=== PATIENT | female | born 1945 ===

== ENCOUNTER 2023-04-30 22:30 | Inpatient (IN) | payer MEDICARE ==
[~2023-04-30] VITALS: Ht 167.6 cm; Wt 87.2 kg
[2023-04-30 23:45] VITALS: BP 141/62; PULSE 89; TEMP 97.8
--- NOTE | 2023-04-30 23:45 | NUR ---
PATIENT ADMITED INTO ROOM 325 FROM [facility] VIA EMS WITH LEFT HIP FX. A&O. VSS. PATIENT REPORTS SHE WAS DRINKING WHISKEY AT A FAMILY GATHERING AND FELL. ETOH WAS 129 AT [facility]. NOTED LEFT HEAD & ELBOW ABRASIONS FROM FALL. LEFT HIP IS SHORTENED & EXTERNALLY ROTATED. TEDS TO RLE. SCD'S TO BLE. BEDREST. NPO PENDING SURGERY. ARRIVED WITH IV FLUIDS INFUSING INTO RIGHT WRIST IV. COELHO TO DD WITH LARGE AMOUNTS OF YELLOW, CLOUDY URINE. [facility] REPORTED UTI AND 1G ROCEPHIN WAS GIVEN THERE BEFORE TRANSFER. HEAD TO TOE ASSESSMENT COMPLETE. HOSPITALIST NOTIFIED OF ARRIVAL. ORIENTED TO ROOM. CALL LIGHT IN REACH. BED ALARM ON. PATIENT TIRED AND WANTING TO REST. LIGHTS TURNED DOWN.
[2023-04-30] MEDS ORDERED: ARIMIDEX1 MG PO (23:52)
[2023-04-30] MEDS ORDERED: COZAAR 50MG50 MG/TAB PO (23:52)
[2023-04-30] MEDS ORDERED: LUNESTA3 MG PO (23:53)
[2023-04-30] MEDS ORDERED: SYNTHROID0.088 MG/T PO (23:53)
[2023-04-30] MEDS ORDERED: ULTRAM 50MG TAB50 MG PO (23:54)
[2023-04-30] MEDS ORDERED: NEURONTIN300 MG/CAP PO ×2 (23:55→23:56)
[2023-04-30] MEDS ORDERED: PLAQUENIL 200M200 MG PO (23:57)
[2023-04-30] MEDS ORDERED: PRIL40 PO (23:58)
[2023-04-30] MEDS ORDERED: ACTOS 45MG45 MG/TAB PO (23:59)
[2023-05-01] VITALS (15 sets, daily range): BP systolic 81–164; BP diastolic 48–79; PULSE 61–106; TEMP 97.6–98.7
[2023-05-01] MEDS ORDERED: ROCEPHIN VIA1 G/VIAL IJ (00:44)
[2023-05-01] MEDS ORDERED: FLEXERIL 1010 MG/TAB PO (00:45)
[2023-05-01 02:07] LABS: BASO % 0.3 % (0.0-2.0); EOS # 0.1 K/mm3 (0.0-0.7); EOS % 0.8 % (0.0-4.0); GRAN # 6.4 K/mm3 (1.4-6.5); GRAN % 79.6 % (42.2-75.2); LYMPH # 1.1 K/mm3 (1.2-3.4); LYMPH % 13.7 % (20.0-51.0); MEAN CELL VOLUME 92 fl (80.0-100.0); MEAN CORPUSCULAR HEMOGLOBIN 32 pg (27-31); MEAN CORPUSCULAR HGB CONC 35 g/dl (33.0-37.0); MEAN PLATELET VOLUME 9.1 fl (7.4-10.4); MONO # 0.4 K/mm3 (0.1-0.6); MONO % 5.3 % (1.7-9.3); PLATELET COUNT 119 K/mm3 (130-400); REDCELL DISTRIBUTION WIDTH-CV 13.2 % (11.5-14.5)
[2023-05-01 02:09] LABS: HEMATOCRIT 28.5 % (37.0-47.0)
[2023-05-01 02:19] LABS: ALANINE AMINOTRANSFERASE 25 U/L (0-55); ALBUMIN 3.4 gm/dL (3.4-4.8); ALKALINE PHOSPHATASE 87 U/L (40-150); ANION GAP 12 mmol/L (7-16); AST,SGOT 42 U/L (5-34); BILIRUBIN,TOTAL 0.3 mg/dL (0.2-1.2); BLOOD UREA NITROGEN 9 mg/dL (10-20); CALCIUM 8.8 mg/dL (8.4-10.2); CARBON DIOXIDE 23 mmol/L (23-31); CHLORIDE 100 mmol/L (98-107); CREATININE, serum 0.72 mg/dL (0.57-1.11); GLUCOSE 88 mg/dL (70-99); MAGNESIUM 1.7 mg/dL (1.6-2.6); SODIUM 135 mmol/L (136-145); TOTAL PROTEIN 6.7 gm/dL (6.2-8.1)
[2023-05-01 02:28] LABS: TROPONIN-I < 0.010 ng/mL (0.00-0.033)
--- NOTE | 2023-05-01 08:00 | NUR ---
PT RESTING IN BED WITH PAIN 6/10 IN L HIP. ATTEMPTED TO REPOSITION. PT A/O X4, LIMITED MOVEMENT OF LLE. VITALS STABLE, MORNING MEDICATIONS PROVIDED. WILL CONTINUE TO MONITOR.
[2023-05-01] MEDS ORDERED: PROBIOTIC-MAJOR PO (09:06)
[2023-05-01] MEDS ORDERED: ASPIRIN E.C. 8181 MG PO (09:07)
--- NOTE | 2023-05-01 15:25 | NUR ---
Staff Physical Therapist met briefly with patient before she was taken down for surgery. Patient stated she lives alone in [facility] and sees Dr. Edwin Morejon for primary care. Patient obtains medications from [facility] in [place] and reported no difficulties affording them. Patient stated she has two canes at home and no other DME. Patient advised she will likely need to secure a walker for discharge. Patient stated she is independent with ADLS. Patient advised her four sons are her DPOA-HC: Ravi (ph#[phone]), Ag, Shannon, and Sami. Patient advised Sami lives in [facility] but the other three live locally. SW explained her role in discharge planning and will await PT/OT evals after surgery for recommendations. Discharge Plan: May need rehab, PT/OT evals pending
--- NOTE | 2023-05-01 18:50 | NUR ---
REPORT RECEIVED FROM PACU NURSE. PT UP TO FLOOR AT THIS TIME. PT A/O X4, PAIN 1/10, VITALS STABLE ON RA, FAMILY AT BEDSIDE, L HIP DRESSING CLEAN, DRY, AND INTACT. ICE TO L HIP. PULSES +2 AND TRACE EDEMA ON BLE, EXTREMITY WARM. DIET ADVANCED WITH NO N/V. WILL CONTINUE TO MONITOR.
--- NOTE | 2023-05-01 21:25 | NUR ---
RECEIVED REPORT FROM DELFINAMIRENAN BUI RN. PATIENT RETURNED FROM OR SHORTLY PRIOR TO SHIFT CHANGE. PATIENT IN ROOM VISITING WITH FAMILY WHILE EATING DINNER. CALL LIGHT WITHIN REACH.
--- NOTE | 2023-05-01 21:31 | NUR ---
HEAD TO TOE ASSESSMENT COMPLETED. PATIENT REPORT PAIN IS 3/10. PUPILS EQUAL AND REACTIVE. HEART SOUNDS REGULAR WITH S1 AND S2 NOTED. LUNG SOUNDS CLEAR BILATERALLY IN UPPER AND LOWER LOBES. BOWEL SOUNDS AUDIBLE IN ALL QUADRANTS. PULSES PRESENT AND EQUAL BILATERALLY IN UPPER AND LOWER EXTREMITIES. DRESSING TO LEFT HIP IS CDI. MEDICATIONS ADMINISTERED PER EMAR. CALL LIGHT WITHIN REACH.
[2023-05-02] VITALS (8 sets, daily range): BP systolic 104–152; BP diastolic 41–60; PULSE 95–101; TEMP 97.7–98.5
[2023-05-02 05:28] LABS: MEAN CELL VOLUME 91 fl (80.0-100.0); MEAN CORPUSCULAR HGB CONC 35 g/dl (33.0-37.0); MEAN PLATELET VOLUME 9.3 fl (7.4-10.4); PLATELET COUNT 116 K/mm3 (130-400); RED BLOOD COUNT 3.07 M/mm3 (4.10-5.30); REDCELL DISTRIBUTION WIDTH-CV 13.3 % (11.5-14.5)
[2023-05-02 05:30] LABS: HEMATOCRIT 27.9 % (37.0-47.0); HEMOGLOBIN 9.7 g/dl (12.5-16.0); MEAN CORPUSCULAR HEMOGLOBIN 32 pg (27-31)
[2023-05-02 05:39] LABS: ALBUMIN 2.9 gm/dL (3.4-4.8); CALCIUM 8.7 mg/dL (8.4-10.2); CREATININE, serum 0.92 mg/dL (0.57-1.11); POTASSIUM 4.5 mmol/L (3.5-4.5)
--- NOTE | 2023-05-02 06:18 | NUR ---
PATIENT HAD UNEVENTFUL NIGHT. PATIENT WAS ABLE TO REST THROUGHOUT NIGHT AND PAIN WAS WELL CONTROLLED. PATIENT CURRENTLY RESTING IN BED WITH EYES CLOSED. CALL LIGHT WITHIN REACH.
--- NOTE | 2023-05-02 08:00 | NUR ---
PT RESTING IN BED WITH PAIN 1/10 IN L HIP, PT ABLE TO WIGGLE TOES AND PLANS TO GET UP WITH THERAPY TODAY. DRESSING CLEAN, DRY, AND INTACT. WILL COTNINUE TO MONITOR.
--- NOTE | 2023-05-02 16:40 | NUR ---
fishing worker was notified [facility] Liasion, Sofie, spoke with patient whom expressed she was undecided between [facility] at [facility] and SNF. SW met with patient to present Medicare.gov list of SNF options near her home. Patient notified forensic social worker that she would like to go to [facility]. SW notified Sofie with [facility] whom will work on submitting for authorization through patient's insurance. SW and [facility] staff will continue to follow for authorization.
--- NOTE | 2023-05-02 20:00 | NUR ---
PATIENT IS A&O AND SITTING UP IN BEDSIDE CHAIR. VSS. DENIES NEED FOR PAIN MEDS BEFORE BED. HS MEDS GIVEN. HS BS WAS 133, NO SSI REQUIRED. RIGHT WRIST IV TO INT. COELHO TO DD. LEFT HIP DSG IS CD&I WITH AQUACEL. TEDS TO BLE. SCD'S CURRENTLY OFF. HEAD TO TOE ASSESSMENT COMPLETE. DNR STATUS. NO OTHER NEEDS AT THIS TIME. CALL LIGHT IN REACH. BED/CHAIR ALARM INPLACE.
[2023-05-03] VITALS (13 sets, daily range): BP systolic 99–121; BP diastolic 35–58; PULSE 74–102; TEMP 97.3–98.4
[2023-05-03 06:03] LABS: MEAN CELL VOLUME 94 fl (80.0-100.0); MEAN CORPUSCULAR HGB CONC 34 g/dl (33.0-37.0); MEAN PLATELET VOLUME 9.5 fl (7.4-10.4); PLATELET COUNT 119 K/mm3 (130-400); RED BLOOD COUNT 2.79 M/mm3 (4.10-5.30); REDCELL DISTRIBUTION WIDTH-CV 13.8 % (11.5-14.5)
[2023-05-03 06:12] LABS: ALBUMIN 2.8 gm/dL (3.4-4.8); CALCIUM 8.6 mg/dL (8.4-10.2); CREATININE, serum 0.86 mg/dL (0.57-1.11); PHOSPHOROUS 2.7 mg/dL (2.3-4.7); POTASSIUM 3.9 mmol/L (3.5-4.5)
[2023-05-03 06:14] LABS: HEMATOCRIT 26.3 % (37.0-47.0); HEMOGLOBIN 8.8 g/dl (12.5-16.0); MEAN CORPUSCULAR HEMOGLOBIN 32 pg (27-31)
--- NOTE | 2023-05-03 08:00 | NUR ---
PT RESTING IN BED WITH PAIN 4/10 IN L HIP. PAIN MEDICATION PROVIDED. PT AMBULATED TO BED WITH STEADY GAIT, 1 ASSIST, WALKER. DRESSING CLEAN, DRY, AND INTACT WITH ICE APPLIED. NO NEEDS AT THIS TIME. WILL COTINUE TO MONITOR.
--- NOTE | 2023-05-03 09:20 | NUR ---
ArnoldLEY CATHETER REMOVED. NO ISSUES. WILL CONTINUE TO MONITOR.
--- NOTE | 2023-05-03 13:00 | NUR ---
Took over pt care from Laina LAZARO. Pt up working with PT recently. Pt is walking in the halls using walker. During assessment, lung clear, heart rate regular. Drsg to hip is CDI. Pt has voided since having sifuentes catheter removed. Pt reports pain is tolerable and does not need pain medicaiton at this time
--- NOTE | 2023-05-03 14:41 | NUR ---
Mobile Home Technician met with patient to check in. She is aware we are waiting on insurance authorization so she can go to [facility]. Patient gave SW contact information for two of her sons: Ravi (ph#[phone]) and Shannon (ph#[phone]). SW contacted Ravi and gave update on discharge plan. Discharge Plan: [facility], Pending authorization
--- NOTE | 2023-05-03 16:03 | NUR ---
Silver Solderer was notified that patient's insurance has requestesd a peer to peer. Dr. More completed the peer to peer and unfortunately patient was denied. SW met with patient and provided Medicare.gov list of SNF options. Patient selected [facility] in [place]. MARIANNA faxed referrals to both. MARIANNA also contacted patient's son, Ravi to provide update. Discharge Plan: SNF
--- NOTE | 2023-05-03 18:00 | NUR ---
Assisted pt back to bed at this time. Pt reported pain was tolerable and denied needing any pain medication. Stated she might take some before she goes to bed. No other needs, call light within reach
--- NOTE | 2023-05-03 19:30 | NUR ---
Assessment complete. A&Ox4. Denies pain/nausea/shortness of breath. VS stable. Assisted up to bathroom at this time time with walker/gait belt. Voided without difficulty. Aquacell to left hip with small amount of old drainage noted. SCDs/TEDs bilat. Noted to have bruising to left thigh, hip and groin. No IV access. Plan of care discussed for this shift to include meds/pain control/calling for questions/concerns. Call light in reach. Will monitor.
[2023-05-04] VITALS (7 sets, daily range): BP systolic 125–138; BP diastolic 41–48; PULSE 90–98; TEMP 97.5–98.4
--- NOTE | 2023-05-04 05:09 | NUR ---
Patient had an uneventful night. Denied pain/nausea/shortness of breath. Up to bathroom several times over night with stand by assist/walker and gait belt. Tolerated well. Received scheduled tylenol for pain. Dressing to left hip-aquacell with small amount of old drainage. Denies current needs. Call light in reach. Will monitor.
[2023-05-04 06:09] LABS: MEAN CELL VOLUME 94 fl (80.0-100.0); MEAN CORPUSCULAR HGB CONC 34 g/dl (33.0-37.0); MEAN PLATELET VOLUME 9.2 fl (7.4-10.4); PLATELET COUNT 112 K/mm3 (130-400); RED BLOOD COUNT 2.49 M/mm3 (4.10-5.30)
[2023-05-04 06:10] LABS: HEMATOCRIT 23.4 % (37.0-47.0); HEMOGLOBIN 7.9 g/dl (12.5-16.0); MEAN CORPUSCULAR HEMOGLOBIN 32 pg (27-31)
[2023-05-04 06:11] LABS: ALBUMIN 2.7 gm/dL (3.4-4.8); CALCIUM 8.5 mg/dL (8.4-10.2); CREATININE, serum 0.76 mg/dL (0.57-1.11); PHOSPHOROUS 2.6 mg/dL (2.3-4.7)
--- NOTE | 2023-05-04 10:13 | NUR ---
Pt doing well today. She gets up with standby assist using a walker. Pt reports having little to no pain. Pt has been up in the chair for a few hours now. PT has been in to work with her. Pt hopeful on getting to leave today. No other needs, call light within reach
[2023-05-04] MEDS ORDERED: ASPI325T6 PO (13:58)
[2023-05-04] MEDS ORDERED: ROXICODONE 55 MG/TAB PO (14:01)
[2023-05-04] MEDS ORDERED: TYLENOL 325MG325 MG PO (14:03)
--- NOTE | 2023-05-04 14:30 | NUR ---
[facility] accepted pt for transfer today, pt aware. Plan for discharge at 3:30
--- NOTE | 2023-05-04 14:37 | NUR ---
cloth worker faxed discharge orders to [facility]. Discharge Plan: SNF
--- NOTE | 2023-05-04 15:30 | NUR ---
Pt is packed and ready for discharge. Awaiting transportation at this time
--- NOTE | 2023-05-04 15:44 | NUR ---
Patch Setter met with patient to follow up on plan for SNF. Patient stated her first preference is [facility]. MARIANNA spoke with Gia at [facility] who submitted for authorization. Gia did inquire about patient's ability to private pay once insurance stops paying as patient does not have a secondary. MARIANNA met with patient who is aware that she will be responsible for payment once her insurance stops paying if she needs additional time. Gia also contacted patient to discuss this. MARIANNA gave private pay rate to patient. Gia followed up with MARIANNA in the afternoon and advised they received authorization and can accept today. Transport time set for 1500. MARIANNA met with patient and presented IM form. Patient verbalized understanding and provided signature. MARIANNA placed form in chart and provided copy to patient. MARIANNA Mckeon faxed discharge orders to [facility]. MARIANNA also contacted patient's son, Ravi to update on discharge. Discharge Plan: [facility]
--- NOTE | 2023-05-04 16:22 | NUR ---
Pt left via [facility] transportation. Report called
== END 2023-05-04 16:23 | DRG 522 ==
LOC: SURG 22:30
PROVIDERS: Internal Medicine; Physician Assistant; ADMIT Internal Medicine
PROC: 0SRS0J9 Replacement of Left Hip Joint, Femoral Surface with Synthetic Substitute, Cemented, Open Approach (ICD-10-PCS; principal; 2023-04-30)
DX: S72.002A Fracture of unspecified part of neck of left femur, initial encounter for closed fracture (principal); N39.0 Urinary tract infection, site not specified; I10 Essential (primary) hypertension; Z79.4 Long term (current) use of insulin; E11.40 Type 2 diabetes mellitus with diabetic neuropathy, unspecified; E03.9 Hypothyroidism, unspecified
CPT/HCPCS: A6197; C1776; J0665; J0690; J0696; J1100; J1815; J2250; J2270; J2704; J2795; J3010; J3260; J3370; J7030; J7120